=== PATIENT | male | born 1985 ===

== ENCOUNTER 2021-06-19 12:34 | Emergency (ER) | payer BC, OTHER ==
[~2021-06-19] VITALS: Ht 182.9 cm; Wt 99.8 kg
[2021-06-19 13:49] VITALS: BP 128/88
== END 2021-06-19 14:24 | disposition home or self-care (01) ==
LOC: ER 12:34
DX: M79.10 Myalgia, unspecified site (principal); J45.909 Unspecified asthma, uncomplicated
CPT/HCPCS: 71046